=== PATIENT | male | born 1980 | race Caucasian/White ===

== ENCOUNTER 2016-06-28 12:57 | Emergency (ER) | payer MEDICARE ==
[2016-06-28] MEDS ORDERED: ZYLOPRIM300 M1 PO (13:01)
[2016-06-28] MEDS ORDERED: NEURONTIN600 M1 PO (13:02)
[2016-06-28] MEDS ORDERED: BUSPIRONE HCL15 M2 PO (13:02)
[2016-06-28] MEDS ORDERED: DEPAKOTE ER500 M1 PO (13:02)
[2016-06-28] MEDS ORDERED: REMERON30 M2 PO (13:03)
[2016-06-28] MEDS ORDERED: PERCOCET 10-321 EACH PO (13:03)
[2016-06-28] MEDS ORDERED: KLONOPIN0.5 M1 PO (13:04)
[2016-06-28] MEDS ORDERED: SPIRIVA18 MC1 (13:05)
[2016-06-28] MEDS ORDERED: FLONASE ALLERG9.9 ML (13:05)
[2016-06-28] MEDS ORDERED: PROAIR HFA8.5 GM (13:05)
[2016-06-28] MEDS ORDERED: NORCO 5-325 TA1 EACH PO (13:42)
== END 2016-06-28 14:13 ==
LOC: EDMED 12:57
DX: M54.5 Low back pain (principal); M54.6 Pain in thoracic spine; G89.29 Other chronic pain; M10.9 Gout, unspecified; F43.10 Post-traumatic stress disorder, unspecified; F25.9 Schizoaffective disorder, unspecified; F17.200 Nicotine dependence, unspecified, uncomplicated; Z79.899 Other long term (current) drug therapy
CPT/HCPCS: J2270; J2360

== ENCOUNTER 2016-07-21 17:12 | Emergency (ER) | payer MEDICARE ==
[~2016-07-21 17:12] MED LIST: BUSPIRONE HCL15 M2 PO; DEPAKOTE ER500 M1 PO; FLONASE ALLERG9.9 ML; KLONOPIN0.5 M1 PO; NEURONTIN600 M1 PO; NORCO 5-325 TA1 EACH PO; PERCOCET 10-321 EACH PO; PROAIR HFA8.5 GM; REMERON30 M2 PO; SPIRIVA18 MC1; ZYLOPRIM300 M1 PO
[2016-07-21] MEDS ORDERED: ZANTAC150 M1 PO (17:17)
[2016-07-21] MEDS ORDERED: NORCO 5-325 TA1 EACH PO (19:05)
== END 2016-07-21 19:11 ==
LOC: EDMED 17:12
DX: M54.5 Low back pain (principal); M54.6 Pain in thoracic spine; F17.210 Nicotine dependence, cigarettes, uncomplicated; W01.0XXA Fall on same level from slipping, tripping and stumbling without subsequent striking against object, initial encounter; Y92.009 Unspecified place in unspecified non-institutional (private) residence as the place of occurrence of the external cause
CPT/HCPCS: J1885

== ENCOUNTER 2016-07-28 15:32 | Emergency (ER) | payer MEDICARE ==
[~2016-07-28 15:32] MED LIST changes: +ZANTAC150 M1 PO
[2016-07-28] MEDS ORDERED: NEXIUM40 M1 PO (15:54)
[2016-07-28] MEDS ORDERED: ZYRTEC10 M7 PO (16:06)
[2016-07-28] MEDS ORDERED: LATUDA80 M1 PO (16:20)
== END 2016-07-28 16:32 ==
LOC: EDMED 15:32
DX: T39.395A Adverse effect of other nonsteroidal anti-inflammatory drugs [NSAID], initial encounter (principal); M54.9 Dorsalgia, unspecified; G89.29 Other chronic pain; F17.210 Nicotine dependence, cigarettes, uncomplicated; Z86.59 Personal history of other mental and behavioral disorders; Z88.1 Allergy status to other antibiotic agents; Z88.8 Allergy status to other drugs, medicaments and biological substances